=== PATIENT | female | born 1995 | race Caucasian/White ===

== ENCOUNTER 2024-08-02 00:09 | Emergency (ER) | payer BC, SELFPAY ==
[2024-08-02 00:13] VITALS: BP 144/82; PULSE 89; RESP 20; TEMP 36.8; O2SAT 99; BMI 45.7
--- NOTE | 2024-08-02 00:29 | ED.GENADULT ---
HPI - General Adult General Date Seen: 08/02/24 Chief complaint: Extremity Pain/Injury, Upper Stated complaint: left arm pain and numbness Time Seen by Provider: 08/02/24 00:15 Source: patient and RN notes reviewed Mode of arrival: ambulatory Limitations: no limitations History of Present Illness HPI narrative: Patient is a 29-year-old, generally healthy young woman who presents for evaluation of her left arm. She says for the past week she has been having some pain in the medial arm just above the elbow. She does have a Nexplanon which is implanted on that arm, but fairly far way from the site of this pain she has been having. Tonight when she was going to bed she noted that she had some paresthesias in her forearm on the ulnar aspect which extend down into the 5th finger. She has not had any weakness. She has not noticed any swelling, redness, fevers. No injuries. She is right-hand dominant. She said she just knows herself and new she has so much anxiety that she would be able to go to bed until she had checked out. She does smoke. Related Data Home Medications ?Medication ?Instructions ?Recorded ?Confirmed No Known Home Medications 08/02/24 08/02/24 Allergies Allergy/AdvReac Type Severity Reaction Status Date / Time amoxicillin Allergy Mild Hives Verified 08/02/24 00:15 Review of Systems Status of ROS: Reports: 6 or more systems reviewed and unremarkable except as noted in History and below [facility] Medical History No significant past medical history Surgical History No significant past surgical history Social History Smoking Status: Never smoker Second hand tobacco smoke exposure: No How often do you have a drink containing alcohol: never AUDIT-C Alcohol total score: 0 Non-prescribed substance use: denies use Exam Narrative: Exam Narrative: Vital signs reviewed In general, alert, well-appearing woman. Neck: Supple, nontender to palpation. Extremities: Left upper extremity is normal appearance without swelling, bruising, rash, erythema or other abnormalities. She has full range of motion the elbow. Nexplanon is palpable at the insertion site without overlying abnormalities. Radial pulse is 2 +, distal CMS is intact. Skin: Warm dry well perfused, no rash or lesion. Neurologic: She is alert, conversant, face symmetric. She has 5 of 5 strength in bilateral upper extremities, sensation is intact to light touch. Paresthesias noted over the ulnar aspect of the forearm on the left. Const: Vital Signs, click to edit/add: Vital Signs - 24 hr 08/02/24 00:13 Temperature 98.2 F Pulse Rate [Right Pulse Oximeter] 89 Respiratory Rate 20 Blood Pressure [Ri ght Upper Arm] 144/82 H Pulse Oximetry 99 Oxygen Delivery Me thod Room Air Documenting provider has reviewed patient's vital signs: yes Course Course ED Course: Overall, presentation is most suggestive of a neuropathy of the ulnar nerve, likely at the elbow although discussed that this can also occur at the shoulder and at the neck. She does not have any neck pain or true radicular symptoms. Her neurologic exam is normal and reassuring. I do not see any evidence of infection, blood clot or other issue related to the Nexplanon. I have suggested that we try a trial of prednisone, see how she does with conservative measures, rest, nonsteroidals, etcetera. Advised that she see her primary doctor if not improving over the next few days as additional testing may be indicated. Return any time for worsening such as weakness, new symptoms such as fevers, swelling, redness etcetera. Vital Signs Vital signs: Initial Vital Signs Temperature 98.2 F 08/02/24 00:13 Temperature Source Temporal Artery Scan 08/02/24 00:13 Pulse Rate 89 08/02/24 00:13 Respiratory Rate 20 08/02/24 00:13 Blood Pressure 144/82 H 08/02/24 00:13 Blood Pressure Mean 102 08/02/24 00:13 Blood Pressure Position Sitting 08/02/24 00:13 Pulse Oximetry 99 08/02/24 00:13 Oxygen Delivery Method Room Air 08/02/24 00:13 Vital Signs Temperature 98.2 F 08/02/24 00:13 Pulse Rate 89 08/02/24 00:13 Respiratory Rate 20 08/02/24 00:13 Blood Pressure 144/82 H 08/02/24 00:13 Pulse Oximetry 99 08/02/24 00:13 Oxygen Delivery Method Room Air 08/02/24 00:13 Temperature 98.2 F 08/02/24 00:13 Pulse Rate 89 08/02/24 00:13 Respiratory Rate 20 08/02/24 00:13 Blood Pressure 144/82 H 08/02/24 00:13 Pulse Oximetry 99 08/02/24 00:13 Oxygen Delivery Method Room Air 08/02/24 00:13 Discharge Plan Discharge Clinical Impression: Neuropathy, 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 Please follow-up with primary care if symptoms persist as other testing may be needed. Return to the ER at any time for significant changes such as swelling, redness, fever, weakness or other worsening. You can use ibuprofen or Tylenol as needed. Ice may be helpful. I would avoid heat for the time being. Prednisone dosin times daily for 3 days, then 2 tabs daily for 3 days, then 1 tab daily for 3 days. Prescriptions: No Action No Known Home Medications Follow Up/Referrals: Keara Solis PA-C [Primary Care Provider] - Stand Alone Forms: Certalia Info Instructions
[2024-08-02 00:31] VITALS: BP 135/80; PULSE 85; RESP 20; TEMP 36.8; O2SAT 99
[2024-08-02 00:32] VITALS: BP 135/80; PULSE 85; RESP 20; TEMP 36.8
--- OUTSIDE RECORDS SUMMARY | 2024-08-02 00:33 | XMS_ITS | Referral Summary ---
Author Organization [facility] Address [address] [place] [address] Care Team Providers Care Novelties Sales Representative Name Role Phone [facility], [facility] Primary Care Provider Benita Sheldon APRN CNM Unavailable Nicole Ray MD Unavailable [phone] Allergies Active Allergy Reactions Criticality Noted Date Comments Amoxicillin Rash Low 07/25/2017 Medications sertraline (ZOLOFT) 100 MG tablet Take 100 mg by mouth daily Active etonogestrel (NEXPLANON) 68 MG IMPL Inject 68 mg Subcutaneous Active ferrous sulfate (FEROSUL) 325 (65 Fe) MG tablet Take 325 mg by mouth daily (with breakfast) Active etonogestrel (NEXPLANON) 68 MG IMPL 1 each (68 mg) by Subdermal route once Active Active Problems Problem Noted Date Diagnosed Date Encounter for triage in patient 020 Immunizations Name Administration Dates Next Due COVID-19 MONOVALENT 12+ (Pfizer) 06/10/2021,05/02 Flu, Unspecified 06/30/2009 HIB(PRP-OMP)(PedvaxHIB) 05/12/1998,1996, HPV Quadrivalent 01/05/2010,06/30/2009 HPV9 01/05/2010,06/30/2009 Hepatitis B, Peds 05/12/1998,1996,07/28/19 96 Historical DTP/aP 05/26/1998, 8,1996,1995 Influenza (IIV3) PF 08/17/2008 Influenza Vaccine >6 months,quad, PF ,09/16/2019,07/15/2018,2017,06/30/2009,08/17/2008 MMR 01/05/2010,05/26/1998 Meningococcal ACWY (Menactra??) 12/09/2007 OPV, trivalent, live 05/26/1998,1996,09/09 TDAP (Adacel,Boostrix) 03/10/2020,07/15/2018,07/2008 Varicella 06/10/2020,06/04/2009 Social History Tobacco Use Types Packs/Day Years Used Date Smoking Tobacco: Every Day Cigarettes Smokeless Tobacco: Never Tobacco Cessation:Ready to Q uit: Yes; Counseling Given: No Alcohol Use Standard Drinks/Week Comments No 0 (1 standard drink = 0.6 oz pur e alcohol) rare Adolescent Education Answer Date Record ed Getting School Help Needed Not on file 07/17 Comments No Sex and Gender Information Value Date Recorded Sex Assigned at Not on file Legal Sex Female 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 Gender Identity Not on file Sexual Orientation Not on file Last Filed Vital Signs Vital Sign Reading Time Taken Comments Blood Pressure 131/86 12/11/2023 8:11 AM CDT Pulse 103 12/11/2023 8:11 AM CDT Temperature 36.4 ??C (97.6 ??F) 12/11/2023 8:11 AM CD T Respiratory Rate 18 12/11/2023 8:11 AM CDT Oxygen Saturation 98% 12/11/2023 8:11 AM CDT Inhaled Oxygen Concentration - - Weight 112.9 kg (249 lb) 05/29/2023 1:12 PM CDT Height 157.5 cm (5' 2) 05/29/2023 1:12 PM CDT Body Mass Index 45.54 05/29/2023 1:12 PM CDT Plan of Treatment Not on file Procedures Procedure Name Priority Date/Time Associated Diagnosis Comments CHLAMYDIA TRACHOMATIS PCR STAT 01/28/2018 1:30 PM CDT Abdominal pain, generalized from Last 3 Months or Most Recently Relevant to Health Maintenance Results * Chlamydia trachomatis PCR (01/28/2018 1:30 PM CDT) Specimen Description Vagina 01/28/2018 1:49 PM CDT [facility] Chlamydia Trachomatis PCR Negative NEG^Negat cami 01/29/2018 1:19 PM CDT [facility] Comment: Negative for C. trachomatis rRNA by director of integrated marketing mediated amplification. A negative result by director of integrated marketing mediated amplification does not preclude the presence of C. trachomatis infection because results are dependent on proper and adequate collection, absence of inhibitors, and sufficient rRNA to be detected. Specimen from vagina (specimen) 01/28/2018 1:30 PM CDT 01/28/2018 1:49 PM CDT Greg Whitt MD LAB - MICRO GENERAL ORDERA BLES Final Result [facility] [address] [place] [address], [facility] [address] [phone] from Last 3 Months or Most Recently Relevant to Health Maintenance Insurance [employer] [place] Care Teams Novelties Sales Representative Relationship Specialty Start Date End Date [address] [address] PCP - General 05/15/18 Benita Sheldon APRN CNM [address] [place] [address] Assigned OBGYN Provider 06/02/23 Nicole Ray MD [address] [place], [place] [address] monogram machine operator 12/10/23
--- OUTSIDE RECORDS SUMMARY | 2024-08-02 00:33 | XMS_ITS | Encounter Summary ---
Author Organization [facility] Address [address] [place] [address] Care Team Providers Care Aircraft Charter Dispatcher Name Role Phone [facility] Primary Care Provider Julia Sampson MD Unavailable [phone] Benita Sheldon APRN CNM Unavailable [phone] Nicole Ray MD Unavailable [phone] Encounter Details Date Type Department Care Team (Late st Contact Info) Description 08/19/2021 Documentation Only INTERFACED REPORT Unknown, Provider Social History Tobacco Use Types Packs/Day Years Used Date Smoking Tobacco: Every Day Cigarettes Smokeless Tobacco: Never Alcohol Use Standard Drinks/Week Comments No 0 (1 standard drink = 0.6 oz pur e alcohol) rare Comments No Sex and Gender Information Value Date Recorded Sex Assigned at Not on file Legal Sex Female 4:19 AM COMMUNICATIONS SUPERINTENDENT Gender Identity Not on file Sexual Orientation Not on file COVID-19 Exposure Response Date Recorded In the last month, have you been in contact with someone who was confirmed or suspected to have Coronavirus / COVID-19? No / Unsure 08/19/2021 11:44 AM COMMUNICATIONS SUPERINTENDENT documented as of this encounter Plan of Treatment Not on file documented as of this encounter Visit Diagnoses Not on filedocumented in this encounter Care Teams Aircraft Charter Dispatcher Relationship Specialty Start Date End Date [facility] [address] [place] [address] PCP - General 05/15/18 Julia Sampson MD [address] [address] Assigned OBGYN Provider 08/21/2109/24 Benita Sheldon APRN CNM [address] [place], [place] [address] Assigned OBGYN Provider 06/02/23 Nicole Ray MD [address] [place] [address] adolescent counselor 12/10/23 documented as of this encounter
--- OUTSIDE RECORDS SUMMARY | 2024-08-02 00:33 | XMS_ITS | Encounter Summary ---
Author Organization [facility] Address [address] [place] [address] Care Team Providers Care Home Appliance Installer Name Role Phone [facility] Primary Care Provider Julia Sampson MD Unavailable [phone] Benita Sheldon APRN, CNM Unavailable [phone] Nicole Ray MD Unavailable [phone] Encounter Details Date Type Department Care Team (Late st Contact Info) Description 05/21/2021 Documentation Only INTERFACED REPORT Unknown, Provider Social History Tobacco Use Types Packs/Day Years Used Date Smoking Tobacco: Every Day Cigarettes Smokeless Tobacco: Never Alcohol Use Standard Drinks/Week Comments No 0 (1 standard drink = 0.6 oz pur e alcohol) rare Comments No Sex and Gender Information Value Date Recorded Sex Assigned at Not on file Legal Sex Female 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 Gender Identity Not on file Sexual Orientation Not on file documented as of this encounter Plan of Treatment Not on file documented as of this encounter Visit Diagnoses Not on filedocumented in this encounter Care Teams Home Appliance Installer Relationship Specialty Start Date End Date [facility] [address] [place] [address] PCP - General 05/15/18 Julia Sampson MD [address] [facility] [address] [place] [address] Assigned OBGYN Provider 08/21/2109/24 Benita Sheldon APRN CNM [address] [place] [address] Assigned OBGYN Provider 06/02/23 Nicole Ray MD [address] [place] [address] engraver wood 12/10/23 documented as of this encounter
--- OUTSIDE RECORDS SUMMARY | 2024-08-02 00:33 | XMS_ITS | Clinical Summary ---
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/01/2007 Myopia 05/01/2007 Immunizations Name Administration Dates Next Due DTP 05/26/1998,05/12/1998,1996 ,1996 HIB PRP-OMP (PedvaxHIB) 05/12/1998,1996, Hepatitis B (Peds) 05/12/1998,1996, 996 MMR 05/26/1998 Meningococcal Vaccine (Menactra) 12/09/2007 Oral Polio Vaccine 05/26/1998,1996, 996 Tdap 12/09/2007 Family History Medical History Relation Name Comments Good Health Father Good Health Mother Relation Name Status Comments Father Mother Social History Tobacco Use Types Packs/Day Years Used Date Smoking Tobacco: Passive Smo ke Exposure - Never Smoker Comments:grandparents smoke inside Alcohol Use Standard Drinks/Week Comments No 0 (1 standard drink = 0.6 oz pur e alcohol) Sex and Gender Information Value Date Recorded Sex Assigned at Not on file Gender Identity Not on file Sexual Orientation Not on file Obstetrics History Last Filed Vital Signs Vital Sign Reading Time Taken Comments Blood Pressure 120/70 01/04/2017 2:31 PM CDT Pulse 96 01/04/2017 2:31 PM CDT Temperature 37.1 ??C (98.7 ??F) 12/09/2007 4:39 PM CD T Respiratory Rate - - Oxygen Saturation 98% 01/04/2017 5:37 PM CDT Inhaled Oxygen Concentration - - Weight 87.5 kg (193 lb) 01/04/2017 2:31 PM CDT Height 161 cm (5' 3.39) 01/04/2017 2:31 PM CDT Body Mass Index 33.77 01/04/2017 2:31 PM CDT Plan of Treatment Health Maintenance Due Date Last Done Comments Depression screening for age 12+ 2008 HIV for age 15-65 2011 Hepatitis C screening for ag e 18-79 2014 Tetanus booster 12/08/2017 12/09/2007 BMI (ht and wt on same day) for age 18+ 01/04/2018 01/04/2017 Pap test for age 21-65 09/29/2022 , 02/05/2018, 02/05/2018 COVID-19 vaccine series (2023- season) 2024 06/10/2021, 05/20/2021 Influenza for age 9-49 06/01/2024 Tdap Completed 12/09/2007 Pneumococcal series for age 6-64 Aged Out No longer eligible b ased on patient's age to complete this topic Procedures Procedure Name Priority Date/Time Associated Diagnosis Comments CHIEF DIVERSITY OFFICER THIN PREP PAP SCREEN IMAGED Routine 09/29/2019 4:00 PM CHEMICALS FERMENTATION OPERATOR from Last 3 Months or Most Recently Relevant to Health Maintenance Results * CHIEF DIVERSITY OFFICER THIN PREP PAP SCREEN IMAGED (09/29/2019 4:00 PM CHEMICALS FERMENTATION OPERATOR) Case Report Gynecologic Cytology Report ? Case: [id number] ? Authorizing Provider: ??Janel Perez NP ? Collected: ? 09/29/2019 1600 ? Ordering Location: ? [facility] ?Received: ?09/30/2019 1832 ? First Screen: ?Stefanie Stephens ? Rescreen: ?Vania Pardo ? Specimen: ?CHIEF DIVERSITY OFFICER ThinPrep Vial Screening, Cervical/Vaginal ? 10/10/2019 9:46 AM [facility] [employer]- ENTRAL LABORATORY INTERPRETATION/ RESULT NEGATIVE FOR INTRAEPITHELIAL LESION OR MALIGNANCY (NIL) (none) 10/10/2019 9:46 AM [facility] [employer] [facility] ENTRAL LABORATORY IMEN ADEQUACY Satisfactory for evaluation No endocervical component seen in a patient 10/10/2019 9:46 AM [facility] [employer] LABORATORY- ENTRAL LABORATORY HPV REQUEST HPV if ASCUS 10/10/2019 9:46 AM [facility] [employer] LABORATORY-C ENTRAL LABORATORY Date of LMP 08/09/2019 10/10/2019 9:46 AM [facility] [employer] LABORATORY-C ENTRAL LABORATORY Last Pap Date 02/05/2018 10/10/2019 9:46 AM [facility] [employer] LABORATORY-C ENTRAL LABORATORY Last Pap Result ASCUS 0 9:46 AM [facility] [employer] [facility]- ENTRAL LABORATORY Comment:HPV- Menstrual Status 10/10/2019 9:46 AM [facility] [employer] [facility]- ENTRND LABORATORY Additional Information 10/10/2019 9:46 AM [facility] [employer] ENTRAL LABORATORY Comment: Interpreted at [facility], Central Laboratory - [address], [place] [address] Automated Review Successful 10/10/2019 9:46 AM CHEMICALS FERMENTATION OPERATOR [facility] [employer] LABORATORY-C ENTRAL LABORATORY Comment:Specimen processed s uccessfully by automated lens cementer device, ThinPrep Imaging System, [employer] Note The pap test is a screening technique, not a diagnostic procedure. It is used primarily to screen for squamous cancers and precursor lesions. Published studies have shown that it is subject to both false negative and false positive results. The pap test should not be used as the sole means to diagnose or exclude pre-malignant and malignant lesions. 10/10/2019 9:46 AM CHEMICALS FERMENTATION OPERATOR [facility] [employer] LABORATORY-C ENTRAL LABORATORY Other (Cervical/Vagina l) 09/29/2019 4:00 PM CHEMICALS FERMENTATION OPERATOR 09/30/2019 6:32 PM CHEMICALS FERMENTATION OPERATOR Janel Perez NP PATHOLOGY/CYTOLOGY [facility]-CENTRAL LABORATORY [address] [place] [address], [place] from Last 3 Months or Most Recently Relevant to Health Maintenance Care Teams Bleacher [employer] Relationship Specialty Start Date End Date Pcp, No . PCP - General 11/09/16
--- OUTSIDE RECORDS SUMMARY | 2024-08-02 00:33 | XMS_ITS | Encounter Summary ---
Author Organization [facility] Address [address] [place] [address]. [place] [address] Care Team Providers Care Automotive Window Tinter Name Role Phone [facility] Primary Care Provider Julia Sampson MD Unavailable [phone] Benita Sheldon APRN CNM Unavailable [phone] Nicole Ray MD Unavailable [phone] Encounter Details Date Type Department Care Team (Late st Contact Info) Description 06/11/2021 Documentation Only INTERFACED REPORT Unknown, Provider Social History Tobacco Use Types Packs/Day Years Used Date Smoking Tobacco: Every Day Cigarettes Smokeless Tobacco: Never Alcohol Use Standard Drinks/Week Comments No 0 (1 standard drink = 0.6 oz pur e alcohol) rare Comments No Sex and Gender Information Value Date Recorded Sex Assigned at Not on file Legal Sex Female 4: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 No / Unsure 06/10/2021 12:59 PM CDT documented as of this encounter Plan of Treatment Not on file documented as of this encounter Visit Diagnoses Not on filedocumented in this encounter Care Teams Automotive Window Tinter Relationship Specialty Start Date End Date [facility] [address] [place] [address] PCP - General 05/15/18 Julia Sampson MD [address] [place] [address] Assigned OBGYN Provider 08/21/2109/24 Benita Sheldon APRN CNM [address] [place], [place] [address] Assigned OBGYN Provider 06/02/23 Nicole Ray MD [address] [place] [address] caser shoe parts 12/10/23 documented as of this encounter
--- OUTSIDE RECORDS SUMMARY | 2024-08-02 00:33 | XMS_ITS | Clinical Summary ---
Author Organization [facility] Address [address] [place] [address] Care Team Providers Care Ship Engines Operating Engineer Name Role Phone [facility], [facility] Primary Care Provider Benita Sheldon APRN CNM Unavailable Nicole Ray MD Unavailable [phone] Allergies Active Allergy Reactions Criticality Noted [...] on file Legal Sex Female 4:19 AM CONSUMER RELATIONS SPECIALIST Gender Identity Not on file Sexual Orientation [...] 05/29/2023 1:12 PM CDT Plan of Treatment Health Maintenance Due Date Last Done Comments ADVANCE CARE PLANNING 1996 ANNUAL REVIEW OF HM ORDERS 1996 YEARLY PREVENTIVE VISIT 1996 Pneumococcal Vaccine: Pediatrics (0 to 5 Years) and At-Risk Patients (6 to 64 Years) (1 of 2 - PCV) 2002 HIV SCREENING 2011 HEPATITIS C SCREENING 2014 PAP 09/29/2022 09/29/2019, 05/0 05/2018, 02/05/2018 PHQ-2 (once per calendar year) 2023 COVID-19 Vaccine (3 - 2023- season) 2024 06/10/2021, 05/20/2021 INFLUENZA VACCINE (#1) 2024 9, 09/16/2019, 07/15/2018, Additional history exists DTAP/TDAP/TD IMMUNIZATION (7 - Td or Tdap) 03/10/2030 03/10/2020, 07/15/2018, 12/09/2007, Additional history exists RSV VACCINE (1 - 1-dose 75+ series) 2071 HEPATITIS B IMMUNIZATION Completed 998, 1996, 1996 MENINGITIS IMMUNIZATION Aged Out 12/09/2007 No l onger eligible based on patient's age to complete this topic HPV IMMUNIZATION Completed 01/05/2010, 03/2010, 06/30/2009, Additional history exists CHLAMYDIA SCREENING Discontinued 01/28/2018 RSV MONOCLONAL ANTIBODY Aged Out No l onger eligible based on patient's age to complete this topic Procedures Procedure Name Priority Date/Time Associated Diagnosis Comments CHLAMYDIA TRACHOMATIS PCR STAT 01/28/2018 1:30 PM CDT Abdominal pain, generalized from Last 3 Months or Most Recently Relevant to Health Maintenance Results * Chlamydia trachomatis PCR (01/28/2018 1:30 PM CDT) Specimen Description Vagina 01/28/2018 1:49 PM CDT [facility] Chlamydia Trachomatis PCR Negative NEG^Negat cami 01/29/2018 1:19 PM CDT [facility] Comment: Negative for C. trachomatis rRNA by navy airspace officer mediated amplification. A negative result by navy airspace officer mediated amplification does not preclude the presence of C. trachomatis infection because results are dependent on proper and adequate collection, absence of inhibitors, and sufficient rRNA to be detected. Specimen from vagina (specimen) 01/28/2018 1:30 PM CDT 01/28/2018 1:49 PM CDT Greg Whitt MD LAB - MICRO GENERAL ORDERA BLES Final Result [facility] [address] [place] [address], [facility] [address] [place] [address], [facility] [phone] from Last 3 Months or Most Recently Relevant to Health Maintenance Insurance BLUE PL[place] ADVANTAGE [place] PLUS [facility] Care Teams Ship Engines Operating Engineer Relationship Specialty Start Date End Date [facility], [address] [address] PCP - General 05/15/18 Benita Sheldon APRN CNM [address] [place] [address] Assigned OBGYN Provider 06/02/23 Nicole Ray MD [address] [place] [address] regional company flatbed truck driver 12/10/23
--- OUTSIDE RECORDS SUMMARY | 2024-08-02 00:33 | XMS_ITS | Encounter Summary ---
Author Organization [facility] Address [address] [place] [address]. [place] [address] Care Team Providers Care Jewel Waxer Name Role Phone [facility] Primary Care Provider Julia Sampson MD Unavailable [phone] Benita Sheldon APRN CNM Unavailable [phone] Nicole Ray MD Unavailable [phone] Encounter Details Date Type Department Care Team (Late st Contact Info) Description 07/31/2021 Documentation Only INTERFACED REPORT Unknown, Provider Social History Tobacco Use Types Packs/Day Years Used Date Smoking Tobacco: Every Day Cigarettes Smokeless Tobacco: Never Alcohol Use Standard Drinks/Week Comments No 0 (1 standard drink = 0.6 oz pur e alcohol) rare Comments No Sex and Gender Information Value Date Recorded Sex Assigned at Not on file Legal Sex Female 4:19 AM IS ARCHITECT Gender Identity Not on file Sexual Orientation Not on file COVID-19 Exposure Response Date Recorded In the last month, have you been in contact with someone who was confirmed or suspected to have Coronavirus / COVID-19? No / Unsure 07/31/2021 7:35 AM CDT documented as of this encounter Plan of Treatment Not on file documented as of this encounter Visit Diagnoses Not on filedocumented in this encounter Care Teams Jewel Waxer Relationship Specialty Start Date End Date [facility] [address] [place] [address] PCP - General 05/15/18 Julia Sampson MD [address] [place] [address] Assigned OBGYN Provider 08/21/2109/24 Benita Sheldon APRN CNM [address] [place], [place] [address] Assigned OBGYN Provider 06/02/23 Nicole Ray MD [address] [place] [address] music theory teacher 12/10/23 documented as of this encounter
--- OUTSIDE RECORDS SUMMARY | 2024-08-02 00:33 | XMS_ITS | Clinical Summary ---
Author Organization [facility] Address [address] [place] [address] Care Team Providers Care Injection Molding Engineer Name Role Phone Unavailable Primary Care Provider Unavailabl e Source Comments You are receiving this document as you are listed as the primary care provider,follow-up provider, or the patient has been referred to you for consultation.This is in compliance with the Medicare andMedicaid EHR Incentive Program,which states Providers who transition their patient to another setting of careor provider of care or refers their patient to another provider of care shouldprovide summary care record for each transition of care or referral. [facility] Allergies Active Allergy Reactions Criticality Noted Date Comments Amoxicillin Hives High 12/17/2020 Medications Medication Sig Dispensed Refills Start Date End Date Status etonogestrel (NEXPLANON) 68 MG implant Inject 68 mg subcutaneously once. Active diclofenac (VOLTAREN) 75 MG enteric coated tablet Take 1 Tablet (75 mg) by mouth two times daily as needed. 30 Tablet 1 12/11/2023 Active Active Problems No known active problems Social History Tobacco Use Types Packs/Day Years Used Date Smoking Tobacco: Every Day Cigarettes Smokeless Tobacco: Never Sex and Gender Information Value Date Recorded Sex Assigned at Not on file Gender Identity Not on file Sexual Orientation Not on file Last Filed Vital Signs Vital Sign Reading Time Taken Comments Blood Pressure 132/84 11/07/2023 8:06 AM SCALDER Pulse 88 11/07/2023 8:06 AM SCALDER Temperature 36.9 ??C (98.5 ??F) 12/11/2023 5:59 PM CD T Respiratory Rate 18 11/07/2023 8:06 AM SCALDER Oxygen Saturation 98% 11/07/2023 8:06 AM SCALDER Inhaled Oxygen Concentration - - Weight 111.1 kg (245 lb) 12/11/2023 5:59 PM CDT Height 157.5 cm (5' 2) 12/11/2023 5:59 PM CDT Body Mass Index 44.81 12/11/2023 5:59 PM CDT Plan of Treatment Health Maintenance Due Date Last Done Comments Cervical Cancer Screening Due 1996 Hep C Screening (Preventive Services) 1996 IPV (Polio) (4 of 4 - 4-dose series) 2000 05/26/1998, 1996, 1996 Pneumococcal (1 - PCV) 2002 HIV Screening (Preventive Services) 2012 Adult Preventive Visit 2014 HepB (1) 2015 COVID-19 Vaccine ( season) 2024 06/10/2021, 05/20/2021 Influenza (#1) 2024 09/16/2019, 07/01, 06/30/2009, Additional history exists DTaP/Tdap/Td (7 - Tdap) 03/10/2030 03/10/20, 07/15/2018, 12/09/2007, Additional history exists Zoster/Shingles (1 of 2) 2046 Hib Completed 05/12/1998, 11/02, 1996 MCV4 Aged Out 12/09/2007 No longer eligi ble based on patient's age to complete this topic HPV Vaccine Completed 01/05/2010, 03/2010, 06/30/2009, Additional history exists HepA Aged Out No longer eligi ble based on patient's age to complete this topic RSV Aged Out No longer eligi ble based on patient's age to complete this topic Kayy Oliver Personal/Family Self [id number] [place] [id number]
== END 2024-08-02 00:32 | disposition home or self-care (01) ==
LOC: ED 00:31
PROVIDERS: Emergency Provider Emergency Medicine; PCP Physician Assistant Medical
DX: G56.22 Lesion of ulnar nerve, left upper limb (principal)
CPT/HCPCS: 99283; 99284

== ENCOUNTER 2025-07-06 09:15 | Outpatient (RCR) | payer BC, SELFPAY ==
--- NOTE | 2025-04-24 12:48 | PT.OPE ---
[facility] PT [facility] Outpatient Eval Start: 04/24/25 10:23 Freq: Status: Active Protocol: Document 04/24/25 12:43 ENM (Rec: 04/24/25 12:45 ENM [id number]) E-signed By Pamela Pepper, DPT Physical Therapy Outpatient Evaluation Insurance Information Recert Due Date 07/23/25 Insurance Name Medicaid,Blue Cross/[employer] Medical Diagnosis pain in left hip pain in left leg low back pain, unspecified Treating Diagnosis low back pain, left hip pain, left knee pain, muscle weakness, decreased hip ROM, Imaging Report xray of lumbar spine and left hip were negative for Information significant findings Referring MD [facility] Subjective Subjective Patient presents to PT for 1 month complaint of left hip and knee pain. It seems like standing in one place and having pressure on it is bothersome. Getting up to move after sitting is also challenging. Has done stretches from the chiropractor which used to help but not anymore. She has always had lower back pain even before she was . The discomfort seems to start in her knee and then up to her hip. When she first goes to put pressure on it that is painful and hard to get moving. Works all day on her feet and is sore. 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 [employer] Objective Other/Pertinent Hip AROM: Objective Hip flexion: L 93 + For pain in hip and knee R 100 IR: L 32 + for hip pain R 35 ER: L 25 ++ for knee pain R 33 Lumbar AROM: FF: WNL pain in back, hinges through TL junction to get back to upright position Ext: WNL more painful in back but improves with reps SB: WNL + for pain in back Rot: WNL + for pain in back EXT and ROT + for pain in back FLEX and ROT no pain Knee ROM: WNL no pain Strength: Hip IR: L 4-/5 with pain R 4/5 Hip ER: L 4-/5 with pain R 4/5 Hip extensors: 4-/5 B + for pain on L SLS significant hip drop when standing on LLE compared to R + for pain Palpation/joint mobility: Lumbar spine PA mobilization: normal mobility + for pain L3-5 CPA which refers to hip, L UPA was less painful + for pain with palpation to medial left knee joint line, L TFL, glute med, piriformis, mid-distal quad ( which refers to knee) Special tests: Passive SLR: + for medial knee pain initially that improves with removing DF. Further into range hip pain is brought on Femoral nerve test: - Functional Test LEFS: 56/80 Performed & Score Assessment Assessment/ Patient is a 29 year old female presenting with low Impression back, left hip and left leg pains. Their back pain has been present for years with left leg pains starting in the last month. Symptoms seem to start in their medial knee and travel up to the front of the hip and then into their glutes. Xray of lumbar spine and hip were negative for significant findings. Pains are worse when getting up in the morning and starting to move after periods of sitting. Upon assessment patients concordant pains brought on with L SLS, all hip ROM, passive SLR, central PAs L3-5 and MMT of hip. They display decreased global hip mobility on L compared to R. They also display moderate glute med weakness compared to contralateral side. Symptoms appear to be referred from the lumbar spine as SLR and PAs to lumbar spine bring on medial knee and hip pains. With likely a component of glute med tendon pathology as well. Kayy would greatly benefit from skilled PT to address impairments stated above in order to perform all functional mobility and recreational activities without significant discomfort or difficulty. Primary Functional getting to standing after sitting, getting up in the Limitations morning Plan of Care Rehabilitation Good Potential Physical Therapy In 10-12 visits: Goals 1. Patient will be IND with HEP and self management of symptoms 2. Patient will improve global hip strength to at least 4/5 to better support hip and spine with gait 3. Patient will be able to get up in the morning with 3 /10 or less hip pain in order to better perform self cares/ADLs 4. Patient will be able to transition from sitting to standing throughout their day without difficulty or discomfort 5. Patient will improve LEFS from 56 to 65 (MDC 9) to demonstrate improvements in LE functional ability Coordination/ Referral Source Communication With Treatment Plan/ Dry Needling,Electrical Stimulation,Gait Training,Heat, Direct Interventions Ice/Cold/Vasopneumatic,Joint Mobilization,Manual Therapy,Neuromuscular Re-ed,Self-Care/Home Management, Therapeutic Activities,Therapeutic Exercises Frequency/Duration 1x a week for 10-12 visits Patient Will Be Completion of LTG(s),Independent w/HEP Discharged From Therapy Evaluation Billing Untimed Code 28 Treatment Minutes Complexity Low Certification Information Initial 04/24/25 Certification Date Ending Certification 07/23/25 Date Provider Signature Yes Required Provider Signature POC & Medical Necessity Shows Agreement With Physician NPI Number Write NPI# Here Physician Comment/ : Change Physician Signature Please Sign/Date Here & Date Requested
== END 2025-09-09 10:56 | disposition home or self-care (01) ==
PROVIDERS: PCP Physician Assistant Medical; Visit Provider Physician Assistant Medical
DX: M25.552 Pain in left hip (principal); M79.605 Pain in left leg; M54.50 Low back pain, unspecified; Z51.89 Encounter for other specified aftercare
CPT/HCPCS: 97110; 97140; 97161

== ENCOUNTER 2025-07-15 15:28 | Outpatient (CLI) | payer BC, SELFPAY ==
[2025-07-15 23:57] LABS: Chlamydia DNA Amplified* NOT DETECTED (No Detected); GC DNA Amplified* NOT DETECTED (No Detected)
[2025-07-20 16:06] LABS: Pap Test Digital Imaging Done
== END 2025-07-15 15:29 | disposition home or self-care (01) ==
PROVIDERS: PCP Physician Assistant Medical; Visit Provider Physician Assistant Medical
DX: Z00.00 Encounter for general adult medical examination without abnormal findings (principal)
CPT/HCPCS: 80053; 80061; 82306; 84443; 87491; 87591; 88141; 88142; 88175

== ENCOUNTER 2025-08-05 15:46 | Outpatient (CLI) | payer BC, SELFPAY ==
--- NOTE | 2025-08-05 16:00 | CRLHL7_ITS ---
For Patients: As a result of the Century Cures Act, medical imaging exams and procedure reports are released immediately into your electronic medical record. You may view this report before your referring provider. If you have questions, please contact your health care provider. CLINICAL HISTORY: Pelvic and perineal pain COMPARISON: 04/04/2019 TECHNIQUE: 2D berger-scale ultrasound. In addition, color Doppler and spectral Doppler analysis was performed of the pelvis using a transabdominal and transvaginal approach. Transvaginal imaging performed to better visualize the endometrial stripe and ovaries. FINDINGS: The myometrium has a normal uniform echotexture. The uterus measures 7.4 x 4.4 x 4.2 cm. The endometrial lining appears normal and measures 2 mm in thickness. The right ovary measures 4.2 x 3.2 x 3.8 cm in size and the left ovary measures 2.8 x 1.9 x 2.6 cm. The ovaries demonstrate normal arterial and venous blood flow on color Doppler and spectral Doppler analysis. There are no suspicious fluid collections within the cul-de-sac. Simple right ovarian cyst measures 3.8 x 2.6 x 3.3 cm. IMPRESSION: Simple right ovarian cyst measures 3.8 cm. No excess pelvic free fluid or torsion. No uterine fibroid. Dictated by Benji Harrison MD @ 08/05/2025 8:33:04 PM (Electronically Signed)
== END 2025-08-05 15:47 | disposition home or self-care (01) ==
LOC: US 15:47
PROVIDERS: PCP Physician Assistant Medical; Visit Provider Physician Assistant Medical
DX: R10.20 Pelvic and perineal pain unspecified side (principal); N83.291 Other ovarian cyst, right side
CPT/HCPCS: 76830; 76856; 93976